=== PATIENT | female | born 1935 | race Caucasian/White ===

== ENCOUNTER 2016-10-15 11:35 | Observation (INO) | payer OTHER ==
[~2016-10-15] VITALS: Ht 152.4 cm; Wt 85.6 kg
[2016-10-15 12:22] LABS: HEMATOCRIT 33.5 % (36.0-46.0); MCH 26.9 PG (29.0-34.0); MCHC 33.1 G/DL (30.0-36.0); MCV 81.1 FL (83-99); MEAN PLAT.VOLUME 9.5 uM^3 (9.5-12.4); PLATELET COUNT 304 K/uL (156-360); RBC DIS.WIDTH-CV 14.1 % (11.8-14.6); RBC DIS.WIDTH-SD 41.7 % (39-53); RED BLOOD COUNT 4.13 M/uL (3.80-5.20); WHITE BLOOD COUNT 6.4 K/uL (4.1-10.2)
[2016-10-15 12:30] LABS: CHLORIDE 93 mEq/L (99-109); POTASSIUM 4.1 mEq/L (3.7-5.4); SODIUM 125 mEq/L (136-147)
[2016-10-15 12:32] LABS: GLUCOSE 144 mg/dL (70-99)
[2016-10-15 12:33] LABS: ANION GAP 8 MEQ/L (2-14)
[2016-10-15 12:34] LABS: TOTAL BILIRUBIN 0.6 mg/dL (0.0-1.0)
[2016-10-15 12:36] LABS: ALKALINE PHOSPHATASE 111 IU/L (3-129); GFR ESTIMATE (CALCULATED) > 59 mL/min/
[2016-10-15 12:37] LABS: UREA NITROGEN (BUN) 15 mg/dL (9-23)
[2016-10-15 15:14] LABS: ADD MIUA? NO; BILIRUBIN NEGATIVE; BLOOD NEGATIVE; COLOR STRAW ((YELLOW)); GLUCOSE (STRIP) NEGATIVE; KETONES NEGATIVE; LEUKOCYTES NEGATIVE; NITRITE NEGATIVE; PROTEIN (STRIP) NEGATIVE; SPECIFIC GRAVITY 1.008 (1.000-1.030); UCUL ADDED? NO; UROBILINOGEN 0.2 MG/DL (0.2-1.0)
[2016-10-15] MEDS ORDERED: IRBESARTAN300 MG PO (16:15)
[2016-10-15] MEDS ORDERED: HYDROCHLOROTHIA25 MG PO (16:15)
[2016-10-15] MEDS ORDERED: LO-DOSE ASPIRIN81 M1 PO (16:16)
[2016-10-15 19:15] VITALS: BP 210/86
[2016-10-15 20:00] VITALS: BP 171/77
[2016-10-15 23:52] VITALS: BP 131/78
[2016-10-16 03:40] VITALS: BP 130/60
[2016-10-16 05:25] LABS: EOSINOPHIL (%) 1.1 % (0-5); EOSINOPHIL COUNT 0.1 K/uL (0-0.3); HEMATOCRIT 28.5 % (36.0-46.0); IMMATURE GRANULOCYTE (%) 0.3 % (0.0-0.7); INSTRUMENT ABS NEUTROPHIL CT 3.7 K/uL; LYMPHOCYTE COUNT 2.1 K/uL (1.0-2.8); MCH 27.8 PG (29.0-34.0); MCV 81.7 FL (83-99); MEAN PLAT.VOLUME 9.9 uM^3 (9.5-12.4); MONOCYTE (%) 5.7 % (3-12); MONOCYTE COUNT 0.4 K/uL (0-0.8); NEUTROPHIL (%) 58.6 % (45-76); NEUTROPHIL COUNT 3.7 K/uL (1.8-6.4); PLATELET COUNT 245 K/uL (156-360); RBC DIS.WIDTH-CV 14.5 % (11.8-14.6); RBC DIS.WIDTH-SD 43.1 % (39-53); RED BLOOD COUNT 3.49 M/uL (3.80-5.20); WHITE BLOOD COUNT 6.3 K/uL (4.1-10.2)
[2016-10-16 05:51] LABS: ANION GAP 8 MEQ/L (2-14); CHLORIDE 98 MEQ/L (99-109); GFR ESTIMATE (CALCULATED) > 59 mL/min/; POTASSIUM 4.3 MEQ/L (3.7-5.4); SAMPLE HEMOLYSIS CHECK 0; SAMPLE ICTERIC CHECK 0; SAMPLE LIPEMIA CHECK 0; SODIUM 128 MEQ/L (136-147); UREA NITROGEN (BUN) 15 mg/dL (9-23)
[2016-10-16 05:53] LABS: GLUCOSE 104 mg/dL (70-99)
[2016-10-16 07:35] VITALS: BP 145/63
[2016-10-16 11:17] VITALS: BP 168/70
[2016-10-16] MEDS ORDERED: BENTYL10 MG PO (11:48)
[2016-10-17] MEDS ORDERED: HYDROCHLOROTHIA25 MG PO (12:57)
== END 2016-10-16 12:29 | disposition home or self-care (01) ==
LOC: EME 11:35 → 5WEST 18:19 → EDOF 18:19 → 5WEST 19:09
PROVIDERS: Internal Medicine; Physician Assistant
DX: E87.1 Hypo-osmolality and hyponatremia (principal); R10.9 Unspecified abdominal pain; I10 Essential (primary) hypertension; E66.9 Obesity, unspecified; Z68.31 Body mass index [BMI] 31.0-31.9, adult; K80.20 Calculus of gallbladder without cholecystitis without obstruction; N28.1 Cyst of kidney, acquired
CPT/HCPCS: 74177; 80048; 80053; 81003; 83605; 85025; 85027; 93005; 99281; 99284; G0378; J0360; J1650; J1885; J2270; J7030

== ENCOUNTER 2016-10-17 08:59 | Inpatient (IN) | payer OTHER ==
[~2016-10-17] VITALS: Ht 165.1 cm; Wt 87.9 kg
[~2016-10-17 08:59] MED LIST: BENTYL10 MG PO; HYDROCHLOROTHIA25 MG PO; IRBESARTAN300 MG PO; LO-DOSE ASPIRIN81 M1 PO
[2016-10-17 09:28] LABS: EOSINOPHIL (%) 0.6 % (0-5); HEMATOCRIT 30.1 % (36.0-46.0); IMMATURE GRANULOCYTE (%) 0.4 % (0.0-0.7); INSTRUMENT ABS NEUTROPHIL CT 5.5 K/uL; LYMPHOCYTE COUNT 1.1 K/uL (1.0-2.8); MCH 26.9 PG (29.0-34.0); MCHC 32.9 G/DL (30.0-36.0); MCV 81.8 FL (83-99); MEAN PLAT.VOLUME 9.4 uM^3 (9.5-12.4); MONOCYTE (%) 4.6 % (3-12); MONOCYTE COUNT 0.3 K/uL (0-0.8); NEUTROPHIL (%) 78.6 % (45-76); NEUTROPHIL COUNT 5.5 K/uL (1.8-6.4); PLATELET COUNT 252 K/uL (156-360); RBC DIS.WIDTH-CV 14.2 % (11.8-14.6); RBC DIS.WIDTH-SD 42.5 % (39-53); RED BLOOD COUNT 3.68 M/uL (3.80-5.20)
[2016-10-17 09:41] LABS: CHLORIDE 97 mEq/L (99-109); POTASSIUM 4.1 mEq/L (3.7-5.4); SODIUM 127 mEq/L (136-147)
[2016-10-17 09:44] LABS: GLUCOSE 122 mg/dL (70-99)
[2016-10-17 09:45] LABS: ANION GAP 6 MEQ/L (2-14)
[2016-10-17 09:46] LABS: TOTAL BILIRUBIN 0.7 mg/dL (0.0-1.0)
[2016-10-17 09:47] LABS: ALKALINE PHOSPHATASE 94 IU/L (3-129); GFR ESTIMATE (CALCULATED) > 59 mL/min/
[2016-10-17 09:48] LABS: UREA NITROGEN (BUN) 10 mg/dL (9-23)
[2016-10-17 09:51] LABS: LIPASE 263 U/L (1.0-51.0)
[2016-10-17 10:33] LABS: ADD MIUA? YES; BILIRUBIN NEGATIVE; BLOOD NEGATIVE; COLOR YELLOW ((YELLOW)); GLUCOSE (STRIP) NEGATIVE; KETONES 5; LEUKOCYTES MODERATE; NITRITE NEGATIVE; PROTEIN (STRIP) 30; SPECIFIC GRAVITY 1.011 (1.000-1.030); UROBILINOGEN 0.2 MG/DL (0.2-1.0)
[2016-10-17 10:38] LABS: BACTERIA RARE /HPF; EPITHELIAL CELLS 1+ /HPF; MUCUS TRACE /LPF; RED BLOOD CELLS 0-5 /HPF (0-5); UCUL ADDED? NO
[2016-10-17] MEDS ORDERED: HYDROCHLOROTHIA25 MG PO (12:57)
[2016-10-17 15:40] VITALS: BP 183/74
[2016-10-17 20:05] VITALS: BP 165/82
[2016-10-18] VITALS: BP 178/77
[2016-10-18 04:00] VITALS: BP 129/75
[2016-10-18 06:43] LABS: EOSINOPHIL (%) 1.1 % (0-5); EOSINOPHIL COUNT 0.1 K/uL (0-0.3); HEMATOCRIT 27.9 % (36.0-46.0); IMMATURE GRANULOCYTE (%) 0.6 % (0.0-0.7); INSTRUMENT ABS NEUTROPHIL CT 4.8 K/uL; LYMPHOCYTE COUNT 1.7 K/uL (1.0-2.8); MCH 27.9 PG (29.0-34.0); MCHC 33.7 G/DL (30.0-36.0); MCV 82.8 FL (83-99); MEAN PLAT.VOLUME 9.9 uM^3 (9.5-12.4); MONOCYTE COUNT 0.5 K/uL (0-0.8); NEUTROPHIL (%) 67.3 % (45-76); NEUTROPHIL COUNT 4.8 K/uL (1.8-6.4); PLATELET COUNT 234 K/uL (156-360); RBC DIS.WIDTH-CV 14.4 % (11.8-14.6); RBC DIS.WIDTH-SD 43.4 % (39-53); RED BLOOD COUNT 3.37 M/uL (3.80-5.20); WHITE BLOOD COUNT 7.2 K/uL (4.1-10.2)
[2016-10-18 07:05] LABS: ALKALINE PHOSPHATASE 75 IU/L (3-129); ANION GAP 6 MEQ/L (2-14); CHLORIDE 100 MEQ/L (99-109); GFR ESTIMATE (CALCULATED) > 59 mL/min/; GLUCOSE 96 mg/dL (70-99); LIPASE 11 U/L (1.0-51.0); POTASSIUM 4.4 MEQ/L (3.7-5.4); SAMPLE HEMOLYSIS CHECK 2; SAMPLE ICTERIC CHECK 0; SAMPLE LIPEMIA CHECK 0; SODIUM 129 MEQ/L (136-147); TOTAL BILIRUBIN 0.7 MG/DL (0.0-1.0); UREA NITROGEN (BUN) 12 mg/dL (9-23)
[2016-10-18 07:44] VITALS: BP 132/63
[2016-10-18 07:55] LABS: IRON 51 MCG/DL (35-150)
[2016-10-18 08:13] LABS: FERRITIN 130 NG/ML (10-291)
[2016-10-18 11:32] VITALS: BP 157/72
[2016-10-18 15:41] VITALS: BP 149/75
[2016-10-18 19:55] VITALS: BP 192/88
[2016-10-19 00:41] VITALS: BP 147/74
[2016-10-19 03:51] VITALS: BP 159/87
[2016-10-19 06:53] LABS: EOSINOPHIL COUNT 0.1 K/uL (0-0.3); IMMATURE GRANULOCYTE (%) 0.3 % (0.0-0.7); LYMPHOCYTE COUNT 2.3 K/uL (1.0-2.8); MCH 27.6 PG (29.0-34.0); MCHC 33.2 G/DL (30.0-36.0); MCV 83.1 FL (83-99); MEAN PLAT.VOLUME 10.2 uM^3 (9.5-12.4); MONOCYTE (%) 7.3 % (3-12); MONOCYTE COUNT 0.5 K/uL (0-0.8); NEUTROPHIL (%) 57.1 % (45-76); PLATELET COUNT 227 K/uL (156-360); RBC DIS.WIDTH-CV 14.4 % (11.8-14.6); RBC DIS.WIDTH-SD 43.7 % (39-53); RED BLOOD COUNT 3.37 M/uL (3.80-5.20)
[2016-10-19 07:15] LABS: ANION GAP 8 MEQ/L (2-14); CHLORIDE 97 MEQ/L (99-109); GFR ESTIMATE (CALCULATED) > 59 mL/min/; GLUCOSE 94 mg/dL (70-99); POTASSIUM 4.2 MEQ/L (3.7-5.4); SAMPLE HEMOLYSIS CHECK 0; SAMPLE ICTERIC CHECK 0; SAMPLE LIPEMIA CHECK 0; SODIUM 128 MEQ/L (136-147); UREA NITROGEN (BUN) 10 mg/dL (9-23)
[2016-10-19 07:45] VITALS: BP 155/71
[2016-10-19 12:25] VITALS: BP 161/81
[2016-10-19 20:17] VITALS: BP 190/112
[2016-10-20] VITALS (8 sets, daily range): BP systolic 156–204; BP diastolic 67–94
[2016-10-20 03:59] LABS: INTERNAL CONTROL VALID? YES
[2016-10-20 08:48] LABS: EOSINOPHIL (%) 1.6 % (0-5); EOSINOPHIL COUNT 0.1 K/uL (0-0.3); IMMATURE GRANULOCYTE (%) 0.4 % (0.0-0.7); INSTRUMENT ABS NEUTROPHIL CT 3.6 K/uL; LYMPHOCYTE COUNT 1.6 K/uL (1.0-2.8); MCH 27.3 PG (29.0-34.0); MCV 82.9 FL (83-99); MEAN PLAT.VOLUME 9.9 uM^3 (9.5-12.4); MONOCYTE (%) 7.4 % (3-12); MONOCYTE COUNT 0.4 K/uL (0-0.8); NEUTROPHIL (%) 62.8 % (45-76); NEUTROPHIL COUNT 3.6 K/uL (1.8-6.4); PLATELET COUNT 280 K/uL (156-360); RBC DIS.WIDTH-CV 14.4 % (11.8-14.6); RBC DIS.WIDTH-SD 43.6 % (39-53); RED BLOOD COUNT 3.62 M/uL (3.80-5.20); WHITE BLOOD COUNT 5.7 K/uL (4.1-10.2)
[2016-10-20 09:10] LABS: ANION GAP 9 MEQ/L (2-14); CHLORIDE 99 MEQ/L (99-109); GFR ESTIMATE (CALCULATED) > 59 mL/min/; GLUCOSE 95 mg/dL (70-99); POTASSIUM 4.3 MEQ/L (3.7-5.4); SAMPLE HEMOLYSIS CHECK 0; SAMPLE ICTERIC CHECK 0; SAMPLE LIPEMIA CHECK 0; SODIUM 132 MEQ/L (136-147); UREA NITROGEN (BUN) 8 mg/dL (9-23)
[2016-10-21] VITALS (7 sets, daily range): BP systolic 132–161; BP diastolic 64–89
[2016-10-22 09:21] VITALS: BP 136/90
[2016-10-22] MEDS ORDERED: DICYCLOMINE HCL10 MG PO (12:07)
[2016-10-22] MEDS ORDERED: CHLORZOXAZONE500 MG PO (12:09)
[2016-10-22] MEDS ORDERED: PROTONIX40 MG PO (12:09)
[2016-10-22] MEDS ORDERED: AMLODIPINE BESYL5 MG PO (12:09)
[2016-10-22] MEDS ORDERED: IBUPROFEN400 MG PO (12:10)
[2016-10-22] MEDS ORDERED: TYLENOL EXTRA500 MG PO (12:11)
[2016-10-22 12:49] VITALS: BP 142/88
== END 2016-10-22 15:17 | disposition home or self-care (01) | DRG 439 ==
LOC: EME 08:59 → 5SOUTH 11:46 → EDOF 11:46 → 5SOUTH 15:36
PROVIDERS: Emergency Medicine; Internal Medicine; Internal Medicine Gastroenterology
PROC: 0DJD8ZZ Inspection of Lower Intestinal Tract, Via Natural or Artificial Opening Endoscopic (ICD-10-PCS; principal; 2016-10-20)
DX: K85.10 Biliary acute pancreatitis without necrosis or infection (principal); E87.1 Hypo-osmolality and hyponatremia; N39.0 Urinary tract infection, site not specified; K80.10 Calculus of gallbladder with chronic cholecystitis without obstruction; Q43.8 Other specified congenital malformations of intestine; D64.9 Anemia, unspecified; I10 Essential (primary) hypertension; E87.8 Other disorders of electrolyte and fluid balance, not elsewhere classified; K64.8 Other hemorrhoids; R10.31 Right lower quadrant pain; Z79.82 Long term (current) use of aspirin; Z82.3 Family history of stroke; Z83.3 Family history of diabetes mellitus; Z60.2 Problems related to living alone
CPT/HCPCS: 74177; 76705; 80048; 80053; 81003; 82272; 82607; 82728; 82746; 83540; 83605; 83690; 84466; 85025; 85027; 93005; 99281; 99284; 99285; C9113; G0378; J0360; J0696; J1650; J1885; J2270; J2405; J7030; J7050